=== PATIENT | male | born 1960 | race Caucasian/White ===

== ENCOUNTER 2016-07-03 19:30 | Emergency (ER) | payer BC ==
[~2016-07-03] VITALS: Ht 172.7 cm; Wt 87.1 kg
[~2016-07-03 19:30] MED LIST: ADULT LOW DOSE81 M1 PO; ADVAIR 500/501 DISK IH; AERONEB GO NEB1 EACH MC; AMLODIPINE BESY10 MG PO; BENICAR40 MG PO; CILOSTAZOL100 MG PO; COMBIVENT RESPIM4 GM IH; DELTASONE20 M1 PO; LEVAQUIN500 MG PO; LOVASTATIN10 MG PO; PROVENTIL2.5 MG/3 M IH; SINGULAIR10 MG PO; SPIRIVA1 INHALATI IH; TYLENOL EXTRA500 MG PO; VENTOLIN HFA18 GM IH
[2016-07-03] MEDS ORDERED: ZOFRAN ODT4 MG PO (21:41)
[2016-07-03 21:59] VITALS: BP 115/61
== END 2016-07-03 22:00 | disposition home or self-care (01) ==
LOC: EME 19:30
DX: S09.90XA Unspecified injury of head, initial encounter (principal); S06.0X0A Concussion without loss of consciousness, initial encounter; W01.198A Fall on same level from slipping, tripping and stumbling with subsequent striking against other object, initial encounter; J45.909 Unspecified asthma, uncomplicated; J44.9 Chronic obstructive pulmonary disease, unspecified; E78.5 Hyperlipidemia, unspecified; I10 Essential (primary) hypertension; Z86.73 Personal history of transient ischemic attack (TIA), and cerebral infarction without residual deficits; Z87.891 Personal history of nicotine dependence
CPT/HCPCS: 70450; 99281; 99283

== ENCOUNTER → 2016-11-10 | Outpatient (CLI) | payer BC ==
[~2016-11-10] MED LIST changes: +ZOFRAN ODT4 MG PO
== END | disposition home or self-care (01) ==
DX: R13.11 Dysphagia, oral phase (principal); R13.13 Dysphagia, pharyngeal phase
CPT/HCPCS: 92611 GN

== ENCOUNTER 2016-12-12 18:06 | Inpatient (IN) | payer BC ==
[~2016-12-12] VITALS: Ht 172.7 cm; Wt 75.8 kg
[2016-12-12 19:14] LABS: HEMATOCRIT 35.6 % (38.0-50.0); MCH 31.3 PG (29.0-34.0); MCHC 34.8 G/DL (30.0-36.0); MCV 89.9 FL (86-99); PLATELET COUNT 244 K/uL (156-360); RBC DIS.WIDTH-CV 11.5 % (11.8-14.6); RED BLOOD COUNT 3.96 M/uL (4.00-5.50); WHITE BLOOD COUNT 8.4 K/uL (4.1-10.2)
[2016-12-12 19:24] LABS: CHLORIDE 84 mEq/L (99-109); POTASSIUM 4.3 mEq/L (3.7-5.4); SODIUM 122 mEq/L (136-147)
[2016-12-12 19:26] LABS: GLUCOSE 86 mg/dL (70-99)
[2016-12-12 19:28] LABS: ANION GAP 9 MEQ/L (2-14)
[2016-12-12 19:30] LABS: GFR ESTIMATE (CALCULATED) > 59 mL/min/
[2016-12-12 19:31] LABS: UREA NITROGEN (BUN) 11 mg/dL (9-23)
[2016-12-12 20:58] LABS: SERUM ETHYL ALCOHOL 94 mg/dL
[2016-12-12 21:05] LABS: TROP-I INTERPRETATION NEGATIVE; TROPONIN-I 0.02 ng/mL (0.0-0.30)
[2016-12-12] MEDS ORDERED: PRAVACHOL10 MG PO (21:40)
[2016-12-13 00:07] VITALS: BP 136/88
[2016-12-13 03:38] VITALS: BP 149/86
[2016-12-13 05:59] LABS: HEMATOCRIT 38.9 % (38.0-50.0); MCH 31.3 PG (29.0-34.0); MCHC 34.2 G/DL (30.0-36.0); MCV 91.5 FL (86-99); MEAN PLAT.VOLUME 8.4 uM^3 (9.0-12.4); PLATELET COUNT 283 K/uL (156-360); RBC DIS.WIDTH-CV 11.9 % (11.8-14.6); RBC DIS.WIDTH-SD 39.9 % (39-53); RED BLOOD COUNT 4.25 M/uL (4.00-5.50); WHITE BLOOD COUNT 6.7 K/uL (4.1-10.2)
[2016-12-13 06:25] LABS: ANION GAP 8 MEQ/L (2-14); CHLORIDE 89 MEQ/L (99-109); GFR ESTIMATE (CALCULATED) > 59 mL/min/; POTASSIUM 4.7 MEQ/L (3.7-5.4); SAMPLE HEMOLYSIS CHECK 0; SAMPLE ICTERIC CHECK 0; SAMPLE LIPEMIA CHECK 0; SODIUM 127 MEQ/L (136-147); UREA NITROGEN (BUN) 12 mg/dL (9-23)
[2016-12-13 06:27] LABS: GLUCOSE 154 mg/dL (70-99)
[2016-12-13 08:31] VITALS: BP 129/86
[2016-12-13 13:04] VITALS: BP 143/80
[2016-12-13 16:39] VITALS: BP 166/93
[2016-12-13 23:40] VITALS: BP 147/85
[2016-12-14 04:24] VITALS: BP 141/80
[2016-12-14 05:44] LABS: EOSINOPHIL (%) 0 % (0-5); HEMATOCRIT 37.6 % (38.0-50.0); IMMATURE GRANULOCYTE (%) 0.7 % (0.0-0.7); IMMATURE GRANULOCYTE COUNT 0.1 K/uL; INSTRUMENT ABS NEUTROPHIL CT 11.7 K/uL; LYMPHOCYTE COUNT 0.2 K/uL (1.0-2.8); MCH 32.6 PG (29.0-34.0); MCHC 35.1 G/DL (30.0-36.0); MCV 92.8 FL (86-99); MEAN PLAT.VOLUME 8.6 uM^3 (9.0-12.4); MONOCYTE (%) 2.6 % (3-12); MONOCYTE COUNT 0.3 K/uL (0-0.8); NEUTROPHIL (%) 94.7 % (45-76); NEUTROPHIL COUNT 11.7 K/uL (1.8-6.4); PLATELET COUNT 281 K/uL (156-360); RBC DIS.WIDTH-CV 11.9 % (11.8-14.6); RBC DIS.WIDTH-SD 40.6 % (39-53); RED BLOOD COUNT 4.05 M/uL (4.00-5.50); WHITE BLOOD COUNT 12.3 K/uL (4.1-10.2)
[2016-12-14 06:23] LABS: ANION GAP 7 MEQ/L (2-14); CHLORIDE 90 MEQ/L (99-109); GFR ESTIMATE (CALCULATED) > 59 mL/min/; GLUCOSE 144 mg/dL (70-99); MAGNESIUM 1.8 mg/dl (1.3-2.7); POTASSIUM 4.1 MEQ/L (3.7-5.4); SAMPLE HEMOLYSIS CHECK 0; SAMPLE ICTERIC CHECK 0; SAMPLE LIPEMIA CHECK 0; SODIUM 127 MEQ/L (136-147); UREA NITROGEN (BUN) 14 mg/dL (9-23); URIC ACID 3.5 mg/dL (3.1-9.2)
[2016-12-14 07:52] VITALS: BP 154/93
[2016-12-14] MEDS ORDERED: AZITHROMYCIN500 M1 PO (07:56)
[2016-12-14] MEDS ORDERED: MEDROL DOSEPAK4 MG PO (07:56)
[2016-12-14 12:10] LABS: HPCA INDEX 0.15
[2016-12-14] MEDS ORDERED: SODIUM CHLORIDE1 G1 PO (15:23)
== END 2016-12-14 13:15 | disposition home or self-care (01) | DRG 191 ==
LOC: EME 18:06 → 3EAST 21:31 → EDOF 21:31 → ENRESERV 21:42 → 3EAST 23:49
PROVIDERS: Hospitalist; Internal Medicine Nephrology
DX: J44.1 Chronic obstructive pulmonary disease with (acute) exacerbation (principal); F10.239 Alcohol dependence with withdrawal, unspecified; E22.2 Syndrome of inappropriate secretion of antidiuretic hormone; J44.0 Chronic obstructive pulmonary disease with (acute) lower respiratory infection; J20.9 Acute bronchitis, unspecified; E11.9 Type 2 diabetes mellitus without complications; E78.5 Hyperlipidemia, unspecified; I10 Essential (primary) hypertension; I73.9 Peripheral vascular disease, unspecified; R09.02 Hypoxemia; R13.10 Dysphagia, unspecified; K64.9 Unspecified hemorrhoids; J98.4 Other disorders of lung; F10.229 Alcohol dependence with intoxication, unspecified; G56.00 Carpal tunnel syndrome, unspecified upper limb; Y90.4 Blood alcohol level of 80-99 mg/100 ml; R47.02 Dysphasia; Z82.49 Family history of ischemic heart disease and other diseases of the circulatory system; Z86.73 Personal history of transient ischemic attack (TIA), and cerebral infarction without residual deficits; Z88.0 Allergy status to penicillin; Z91.013 Allergy to seafood; Z91.81 History of falling; Z87.891 Personal history of nicotine dependence; Z23 Encounter for immunization
CPT/HCPCS: 70450; 70491; 71020; 76700; 80048; 81003; 82533 91; 82570; 83735; 83935; 84100; 84156; 84300; 84484; 84550; 85025; 85027; 86803; 87070; 87205; 90686; 93005; 94640; 94640 76; 94799; 99202; 99281; 99285; G0480; J1650; J1956; J2060; J2930; J7030; J7512

== ENCOUNTER 2017-05-08 19:19 | Observation (INO) | payer BC ==
[~2017-05-08] VITALS: Ht 170.2 cm; Wt 82.9 kg
[~2017-05-08 19:19] MED LIST changes: +AZITHROMYCIN500 M1 PO; +MEDROL DOSEPAK4 MG PO; +PRAVACHOL10 MG PO; +SODIUM CHLORIDE1 G1 PO
[2017-05-08 20:11] LABS: HEMATOCRIT 35.1 % (38.0-50.0); HEMOGLOBIN 12.4 G/DL (12.5-16.6); MCH 32.4 PG (29.0-34.0); MCHC 35.3 G/DL (30.0-36.0); MCV 91.6 FL (86-99); PLATELET COUNT 249 K/uL (156-360); RBC DIS.WIDTH-CV 11.5 % (11.8-14.6); RBC DIS.WIDTH-SD 38.8 % (39-53); RED BLOOD COUNT 3.83 M/uL (4.00-5.50); WHITE BLOOD COUNT 7.8 K/uL (4.1-10.2)
[2017-05-08 20:24] LABS: CHLORIDE 90 mEq/L (99-109); POTASSIUM 4.3 mEq/L (3.7-5.4); SODIUM 128 mEq/L (136-147)
[2017-05-08 20:26] LABS: GLUCOSE 106 mg/dL (70-99)
[2017-05-08 20:30] LABS: CREATININE 0.7 mg/dL (0.6-1.3); GFR ESTIMATE (CALCULATED) > 59 mL/min/ (58.99-99999)
[2017-05-08 20:31] LABS: UREA NITROGEN (BUN) 12 mg/dL (9-23)
[2017-05-09] MEDS ORDERED: OLMESARTAN MEDO40 MG PO
[2017-05-09 03:05] VITALS: BP 131/84
[2017-05-09 07:27] LABS: PTT 32.5 SEC (25-37)
[2017-05-09 07:30] VITALS: BP 122/67
[2017-05-09 11:40] VITALS: BP 133/72
[2017-05-09 20:10] VITALS: BP 136/79
[2017-05-10 00:02] VITALS: BP 100/60
[2017-05-10 00:23] VITALS: BP 128/68
[2017-05-10 04:15] VITALS: BP 133/90
[2017-05-10 07:14] LABS: HEMATOCRIT 33.7 % (38.0-50.0); HEMOGLOBIN 11.4 G/DL (12.5-16.6); MCH 31.7 PG (29.0-34.0); MCHC 33.8 G/DL (30.0-36.0); MCV 93.6 FL (86-99); PLATELET COUNT 272 K/uL (156-360); RBC DIS.WIDTH-CV 11.6 % (11.8-14.6); RBC DIS.WIDTH-SD 40.6 % (39-53); WHITE BLOOD COUNT 8.8 K/uL (4.1-10.2)
[2017-05-10 07:37] LABS: CHLORIDE 94 MEQ/L (99-109); CREATININE 0.8 MG/DL (0.6-1.3); GFR ESTIMATE (CALCULATED) > 59 mL/min/ (58.99-99999); GLUCOSE 101 mg/dL (70-99); POTASSIUM 4.4 MEQ/L (3.7-5.4); SODIUM 134 MEQ/L (136-147); UREA NITROGEN (BUN) 16 mg/dL (9-23)
[2017-05-10 08:40] VITALS: BP 150/84
[2017-05-10 11:39] VITALS: BP 129/73
[2017-05-10] MEDS ORDERED: CEFTIN500 MG PO (12:30)
[2017-05-10] MEDS ORDERED: PRAVASTATIN SOD40 MG PO (12:31)
== END 2017-05-10 14:23 | disposition home or self-care (01) ==
LOC: EME 19:19 → 3EAST 05-09 01:47 → EDOF 05-09 01:47 → 3EAST 05-09 01:47 → ENRESERV 05-09 01:50 → 4EAST 05-09 02:50 → ENRESERV 05-09 19:40 → 3EAST 05-09 20:26
PROVIDERS: Hospitalist; Internal Medicine; Physician Assistant
PROC: 0CJS8ZZ Inspection of Larynx, Via Natural or Artificial Opening Endoscopic (ICD-10-PCS; principal; 2017-05-09)
DX: J04.0 Acute laryngitis (principal); E87.1 Hypo-osmolality and hyponatremia; J18.9 Pneumonia, unspecified organism; Z86.73 Personal history of transient ischemic attack (TIA), and cerebral infarction without residual deficits; I10 Essential (primary) hypertension; E78.5 Hyperlipidemia, unspecified; E11.9 Type 2 diabetes mellitus without complications; Z87.891 Personal history of nicotine dependence; Z82.49 Family history of ischemic heart disease and other diseases of the circulatory system; Z83.3 Family history of diabetes mellitus; I70.219 Atherosclerosis of native arteries of extremities with intermittent claudication, unspecified extremity; I65.23 Occlusion and stenosis of bilateral carotid arteries; I25.10 Atherosclerotic heart disease of native coronary artery without angina pectoris; Z88.0 Allergy status to penicillin; Z91.013 Allergy to seafood
CPT/HCPCS: 70360; 70491; 71046; 80048; 82948; 85027; 85610; 85730; 92610 GN; 93005; 94640; 94640 76; 99202; 99281; 99285; G0378; J0456; J0696; J1100; J1644; J7030; J7040

== ENCOUNTER 2017-07-05 12:10 | Inpatient (IN) | payer OTHER ==
[~2017-07-05] VITALS: Ht 167.6 cm; Wt 83.0 kg
[~2017-07-05 12:10] MED LIST changes: +CEFTIN500 MG PO; +OLMESARTAN MEDO40 MG PO; +PRAVASTATIN SOD40 MG PO
[2017-07-05 12:44] LABS: BASOPHIL (%) 0.1 % (0-1); EOSINOPHIL (%) 0.3 % (0-5); HEMATOCRIT 35.9 % (38.0-50.0); HEMOGLOBIN 12.8 G/DL (12.5-16.6); IMMATURE GRANULOCYTE (%) 0.6 % (0.0-0.7); LYMPHOCYTE (%) 8.8 % (15-42); LYMPHOCYTE COUNT 0.8 K/uL (1.0-2.8); MCH 32.4 PG (29.0-34.0); MCHC 35.7 G/DL (30.0-36.0); MCV 90.9 FL (86-99); MONOCYTE (%) 7.4 % (3-12); MONOCYTE COUNT 0.7 K/uL (0-0.8); NEUTROPHIL (%) 82.8 % (45-76); NEUTROPHIL COUNT 7.8 K/uL (1.8-6.4); PLATELET COUNT 283 K/uL (156-360); RBC DIS.WIDTH-SD 40.3 % (39-53); RED BLOOD COUNT 3.95 M/uL (4.00-5.50); WHITE BLOOD COUNT 9.4 K/uL (4.1-10.2)
[2017-07-05 12:53] LABS: CHLORIDE 87 mEq/L (99-109); POTASSIUM 4.5 mEq/L (3.7-5.4); SODIUM 122 mEq/L (136-147)
[2017-07-05 12:55] LABS: GLUCOSE 124 mg/dL (70-99)
[2017-07-05 12:59] LABS: CREATININE 0.8 mg/dL (0.6-1.3); GFR ESTIMATE (CALCULATED) > 59 mL/min/ (58.99-99999); UREA NITROGEN (BUN) 19 mg/dL (9-23)
[2017-07-05] MEDS ORDERED: SPIRIVA1 INHALATI IH (13:40)
[2017-07-05] MEDS ORDERED: CLEOCIN300 MG PO (13:48)
[2017-07-05] MEDS ORDERED: PREDNISONE10 MG PO ×2 (13:49)
[2017-07-05 15:33] VITALS: BP 145/85
[2017-07-05 19:15] VITALS: BP 134/77
[2017-07-05 23:27] VITALS: BP 100/70
[2017-07-06 03:59] VITALS: BP 105/73
[2017-07-06 05:37] LABS: CHLORIDE 92 MEQ/L (99-109); CREATININE 0.7 MG/DL (0.6-1.3); GFR ESTIMATE (CALCULATED) > 59 mL/min/ (58.99-99999); GLUCOSE 181 mg/dL (70-99); POTASSIUM 4.3 MEQ/L (3.7-5.4); SODIUM 127 MEQ/L (136-147); UREA NITROGEN (BUN) 20 mg/dL (9-23)
[2017-07-06 08:40] VITALS: BP 188/99
[2017-07-06 11:36] VITALS: BP 138/76
[2017-07-06 15:52] VITALS: BP 129/79
[2017-07-06 23:24] VITALS: BP 129/72
[2017-07-07 04:05] VITALS: BP 141/75
[2017-07-07 05:57] LABS: CHLORIDE 95 MEQ/L (99-109); CREATININE 0.8 MG/DL (0.6-1.3); GFR ESTIMATE (CALCULATED) > 59 mL/min/ (58.99-99999); GLUCOSE 153 mg/dL (70-99); POTASSIUM 4.4 MEQ/L (3.7-5.4); SODIUM 130 MEQ/L (136-147); UREA NITROGEN (BUN) 16 mg/dL (9-23)
[2017-07-07 07:18] VITALS: BP 149/75
[2017-07-07 11:32] VITALS: BP 136/76
[2017-07-07 16:57] VITALS: BP 131/74
[2017-07-07 19:19] VITALS: BP 137/73
[2017-07-07 23:29] VITALS: BP 136/80
[2017-07-08 03:29] VITALS: BP 128/66
[2017-07-08 06:12] LABS: CHLORIDE 93 MEQ/L (99-109); CREATININE 0.8 MG/DL (0.6-1.3); GFR ESTIMATE (CALCULATED) > 59 mL/min/ (58.99-99999); GLUCOSE 121 mg/dL (70-99); POTASSIUM 4.6 MEQ/L (3.7-5.4); SODIUM 130 MEQ/L (136-147); UREA NITROGEN (BUN) 20 mg/dL (9-23)
[2017-07-08 07:58] VITALS: BP 156/87
[2017-07-08] MEDS ORDERED: FLUCONAZOLE100 MG PO (09:49)
[2017-07-08] MEDS ORDERED: AUGMENTIN875 MG PO (09:51)
[2017-07-08] MEDS ORDERED: ALPRAZOLAM0.25 M2 PO (09:53)
[2017-07-08] MEDS ORDERED: PROBIOTIC1 EAC4 PO (09:53)
[2017-07-08] MEDS ORDERED: PREDNISONE10 MG PO (09:53)
== END 2017-07-08 11:33 | disposition home or self-care (01) | DRG 191 ==
LOC: EME 12:10 → EDOF 14:04 → 4SOUTH 14:04 → EDOF 14:12 → ENRESERV 14:12 → 4SOUTH 15:25
PROVIDERS: Emergency Medicine; Hospitalist
DX: J44.0 Chronic obstructive pulmonary disease with (acute) lower respiratory infection (principal); J44.1 Chronic obstructive pulmonary disease with (acute) exacerbation; E78.5 Hyperlipidemia, unspecified; E87.1 Hypo-osmolality and hyponatremia; I73.9 Peripheral vascular disease, unspecified; I10 Essential (primary) hypertension; J20.9 Acute bronchitis, unspecified; E86.0 Dehydration; F41.9 Anxiety disorder, unspecified; J05.10 Acute epiglottitis without obstruction; K21.9 Gastro-esophageal reflux disease without esophagitis; J04.0 Acute laryngitis; Z79.899 Other long term (current) drug therapy; Z82.49 Family history of ischemic heart disease and other diseases of the circulatory system; Z87.891 Personal history of nicotine dependence; Z86.73 Personal history of transient ischemic attack (TIA), and cerebral infarction without residual deficits
CPT/HCPCS: 70360; 71045; 80048; 84295; 85025; 87040; 93005; 93880; 94640; 94640 76; 99202; 99281; 99285; J0456; J1650; J2920; J2930; J7030

== ENCOUNTER 2017-07-18 21:36 | Inpatient (IN) | payer OTHER ==
[~2017-07-18] VITALS: Ht 167.6 cm; Wt 85.6 kg
[~2017-07-18 21:36] MED LIST changes: +ALPRAZOLAM0.25 M2 PO; +AUGMENTIN875 MG PO; +CLEOCIN300 MG PO; +FLUCONAZOLE100 MG PO; +PREDNISONE10 MG PO; +PROBIOTIC1 EAC4 PO
[2017-07-18 21:54] LABS: BASOPHIL (%) 0.1 % (0-1); EOSINOPHIL (%) 0.5 % (0-5); EOSINOPHIL COUNT 0.1 K/uL (0-0.3); HEMATOCRIT 34.5 % (38.0-50.0); HEMOGLOBIN 12.4 G/DL (12.5-16.6); IMMATURE GRANULOCYTE (%) 0.4 % (0.0-0.7); LYMPHOCYTE (%) 9.1 % (15-42); LYMPHOCYTE COUNT 1.3 K/uL (1.0-2.8); MCH 32.9 PG (29.0-34.0); MCHC 35.9 G/DL (30.0-36.0); MCV 91.5 FL (86-99); MONOCYTE (%) 5.1 % (3-12); MONOCYTE COUNT 0.7 K/uL (0-0.8); NEUTROPHIL (%) 84.8 % (45-76); NEUTROPHIL COUNT 11.7 K/uL (1.8-6.4); PLATELET COUNT 232 K/uL (156-360); RBC DIS.WIDTH-CV 12.3 % (11.8-14.6); RBC DIS.WIDTH-SD 41.1 % (39-53); RED BLOOD COUNT 3.77 M/uL (4.00-5.50); WHITE BLOOD COUNT 13.8 K/uL (4.1-10.2)
[2017-07-18 22:04] LABS: ALBUMIN 3.9 g/dL (3.2-4.8)
[2017-07-18 22:05] LABS: CHLORIDE 89 mEq/L (99-109); POTASSIUM 4.4 mEq/L (3.7-5.4); SODIUM 125 mEq/L (136-147)
[2017-07-18 22:07] LABS: GLUCOSE 110 mg/dL (70-99); TOTAL PROTEIN 6.2 g/dL (6.4-8.3)
[2017-07-18 22:09] LABS: TOTAL BILIRUBIN 0.6 mg/dL (0.0-1.0)
[2017-07-18 22:10] LABS: ALKALINE PHOSPHATASE 77 IU/L (3-129)
[2017-07-18 22:11] LABS: CREATININE 0.8 mg/dL (0.6-1.3); GFR ESTIMATE (CALCULATED) > 59 mL/min/ (58.99-99999)
[2017-07-18 22:12] LABS: AST (GOT) 21 IU/L (2-34); UREA NITROGEN (BUN) 14 mg/dL (9-23)
[2017-07-18 22:13] LABS: ALT (GPT) 25 IU/L (3-49)
[2017-07-18 22:17] LABS: TROP-I INTERPRETATION NEGATIVE; TROPONIN-I 0.01 ng/mL (0.0-0.30)
[2017-07-18] MEDS ORDERED: PRAVACHOL40 MG PO (23:08)
[2017-07-18] MEDS ORDERED: PREDNISONE20 MG PO (23:12)
[2017-07-18] MEDS ORDERED: OCEAN NASAL 0.645 ML BOTH NARES (23:13)
[2017-07-19 07:25] LABS: C-REACTIVE PROTEIN < 1.0 MG/L (0-10)
[2017-07-19 07:43] LABS: FOLIC ACID (FOLATE) 9.2 NG/ML (5.0-22.0)
[2017-07-19] MEDS ORDERED: BENICAR40 MG PO (08:16)
[2017-07-19 08:37] VITALS: BP 174/95
[2017-07-19 10:56] LABS: HEMATOCRIT 37.2 % (38.0-50.0); HEMOGLOBIN 12.5 G/DL (12.5-16.6); MCH 31.7 PG (29.0-34.0); MCHC 33.6 G/DL (30.0-36.0); MCV 94.4 FL (86-99); PLATELET COUNT 236 K/uL (156-360); RBC DIS.WIDTH-CV 12.5 % (11.8-14.6); RBC DIS.WIDTH-SD 43.7 % (39-53); RED BLOOD COUNT 3.94 M/uL (4.00-5.50); WHITE BLOOD COUNT 11.1 K/uL (4.1-10.2)
[2017-07-19 11:02] LABS: CHLORIDE 90 MEQ/L (99-109); CREATININE 0.8 MG/DL (0.6-1.3); GFR ESTIMATE (CALCULATED) > 59 mL/min/ (58.99-99999); GLUCOSE 113 mg/dL (70-99); POTASSIUM 4.7 MEQ/L (3.7-5.4); SODIUM 128 MEQ/L (136-147); UREA NITROGEN (BUN) 16 mg/dL (9-23)
[2017-07-19 11:10] VITALS: BP 161/87
[2017-07-19 13:00] LABS: APPEARANCE CLEAR ((CLEAR)); BILIRUBIN NEGATIVE; BLOOD NEGATIVE; COLOR STRAW ((YELLOW)); GLUCOSE (STRIP) 150; KETONES NEGATIVE; LEUKOCYTES NEGATIVE; NITRITE NEGATIVE; PROTEIN (STRIP) NEGATIVE; SPECIFIC GRAVITY 1.009 (1.000-1.030); UCUL ADDED? NO; UROBILINOGEN 0.2 MG/DL (0.2-1.0)
[2017-07-19 16:21] VITALS: BP 144/78
[2017-07-19 19:58] VITALS: BP 154/93
[2017-07-19 23:30] VITALS: BP 130/68
[2017-07-20 04:08] VITALS: BP 159/97
[2017-07-20 06:01] LABS: HEMATOCRIT 35.5 % (38.0-50.0); MCH 31.3 PG (29.0-34.0); MCHC 33.8 G/DL (30.0-36.0); MCV 92.4 FL (86-99); PLATELET COUNT 232 K/uL (156-360); RBC DIS.WIDTH-CV 12.4 % (11.8-14.6); RBC DIS.WIDTH-SD 42.2 % (39-53); RED BLOOD COUNT 3.84 M/uL (4.00-5.50); WHITE BLOOD COUNT 10.6 K/uL (4.1-10.2)
[2017-07-20 06:14] LABS: CHLORIDE 89 MEQ/L (99-109); CREATININE 0.7 MG/DL (0.6-1.3); GFR ESTIMATE (CALCULATED) > 59 mL/min/ (58.99-99999); GLUCOSE 153 mg/dL (70-99); POTASSIUM 4.1 MEQ/L (3.7-5.4); SODIUM 128 MEQ/L (136-147); UREA NITROGEN (BUN) 14 mg/dL (9-23)
[2017-07-20 08:01] VITALS: BP 149/75
[2017-07-20 12:08] VITALS: BP 140/94
[2017-07-20 15:37] VITALS: BP 143/77
[2017-07-20 23:45] VITALS: BP 145/83
[2017-07-21 05:18] VITALS: BP 139/83
[2017-07-21 05:46] LABS: HEMATOCRIT 33.1 % (38.0-50.0); HEMOGLOBIN 11.5 G/DL (12.5-16.6); MCH 31.6 PG (29.0-34.0); MCHC 34.7 G/DL (30.0-36.0); MCV 90.9 FL (86-99); PLATELET COUNT 194 K/uL (156-360); RBC DIS.WIDTH-CV 12.2 % (11.8-14.6); RED BLOOD COUNT 3.64 M/uL (4.00-5.50); WHITE BLOOD COUNT 9.2 K/uL (4.1-10.2)
[2017-07-21 06:26] LABS: CHLORIDE 91 MEQ/L (99-109); CREATININE 0.9 MG/DL (0.6-1.3); GFR ESTIMATE (CALCULATED) > 59 mL/min/ (58.99-99999); GLUCOSE 140 mg/dL (70-99); MAGNESIUM 1.9 mg/dl (1.3-2.7); POTASSIUM 3.8 MEQ/L (3.7-5.4); SODIUM 130 MEQ/L (136-147); UREA NITROGEN (BUN) 21 mg/dL (9-23)
[2017-07-21 07:42] VITALS: BP 168/86
[2017-07-21] MEDS ORDERED: SODIUM CHLORIDE1 G1 PO (10:54)
[2017-07-21] MEDS ORDERED: FUROSEMIDE20 MG PO (10:54)
[2017-07-21] MEDS ORDERED: PREDNISONE20 MG PO (10:55)
[2017-07-24 21:56] LABS: Neutrophil Cytoplasmic Aby Negative (Negative)
== END 2017-07-21 12:56 | disposition home or self-care (01) | DRG 644 ==
LOC: EME 21:36 → 3EAST 07-19 04:44 → EDOF 07-19 04:44 → ENRESERV 07-19 04:47 → 3EAST 07-19 07:56
PROVIDERS: Emergency Medicine; Hospitalist; Internal Medicine Infectious Disease; Internal Medicine Nephrology; Physician Assistant
DX: E27.40 Unspecified adrenocortical insufficiency (principal); E22.2 Syndrome of inappropriate secretion of antidiuretic hormone; J05.10 Acute epiglottitis without obstruction; J37.0 Chronic laryngitis; J02.9 Acute pharyngitis, unspecified; R13.10 Dysphagia, unspecified; J44.1 Chronic obstructive pulmonary disease with (acute) exacerbation; E78.5 Hyperlipidemia, unspecified; I10 Essential (primary) hypertension; F32.9 Major depressive disorder, single episode, unspecified; E11.51 Type 2 diabetes mellitus with diabetic peripheral angiopathy without gangrene; F10.10 Alcohol abuse, uncomplicated; R59.0 Localized enlarged lymph nodes; E66.01 Morbid (severe) obesity due to excess calories; Z68.30 Body mass index [BMI] 30.0-30.9, adult; Z86.73 Personal history of transient ischemic attack (TIA), and cerebral infarction without residual deficits; Z87.891 Personal history of nicotine dependence; Z88.1 Allergy status to other antibiotic agents; Z91.013 Allergy to seafood; Z79.52 Long term (current) use of systemic steroids
CPT/HCPCS: 70360; 70491; 70540; 71046; 76700; 80048; 80048 91; 80053; 81003; 82164 90; 82607; 82746; 83003 90; 83735; 83880; 83935; 84300; 84484; 84550; 85025; 85027; 85651; 86021 90; 86060 90; 86140; 87651 90; 93005; 93306; 94640; 94640 76; 94799; 99202; 99281; 99284; J0295; J0696; J1100; J1650; J2060; J2930; J3370; J7030; J7050

== ENCOUNTER 2017-08-03 21:32 | Observation (INO) | payer OTHER ==
[~2017-08-03] VITALS: Ht 167.6 cm; Wt 80.9 kg
[~2017-08-03 21:32] MED LIST changes: +FUROSEMIDE20 MG PO; +OCEAN NASAL 0.645 ML BOTH NARES; +PRAVACHOL40 MG PO; +PREDNISONE20 MG PO
[2017-08-03 22:02] LABS: HEMATOCRIT 37.9 % (38.0-50.0); HEMOGLOBIN 13.2 G/DL (12.5-16.6); MCH 32.6 PG (29.0-34.0); MCHC 34.8 G/DL (30.0-36.0); MCV 93.6 FL (86-99); PLATELET COUNT 251 K/uL (156-360); RBC DIS.WIDTH-CV 13.1 % (11.8-14.6); RBC DIS.WIDTH-SD 44.9 % (39-53); RED BLOOD COUNT 4.05 M/uL (4.00-5.50); WHITE BLOOD COUNT 8.2 K/uL (4.1-10.2)
[2017-08-03 22:14] LABS: CHLORIDE 93 mEq/L (99-109); POTASSIUM 3.7 mEq/L (3.7-5.4); SODIUM 136 mEq/L (136-147)
[2017-08-03 22:16] LABS: GLUCOSE 129 mg/dL (70-99)
[2017-08-03 22:20] LABS: CREATININE 0.9 mg/dL (0.6-1.3); GFR ESTIMATE (CALCULATED) > 59 mL/min/ (58.99-99999)
[2017-08-03 22:21] LABS: UREA NITROGEN (BUN) 23 mg/dL (9-23)
[2017-08-03 23:32] LABS: ALBUMIN 4.1 g/dL (3.2-4.8)
[2017-08-03 23:35] LABS: TOTAL PROTEIN 6.6 g/dL (6.4-8.3)
[2017-08-03 23:37] LABS: TOTAL BILIRUBIN 0.5 mg/dL (0.0-1.0)
[2017-08-03 23:38] LABS: ALKALINE PHOSPHATASE 77 IU/L (3-129)
[2017-08-03 23:40] LABS: AST (GOT) 16 IU/L (2-34)
[2017-08-03 23:41] LABS: ALT (GPT) 27 IU/L (3-49); DIRECT BILIRUBIN 0.2 mg/dL (0.0-0.3); TROP-I INTERPRETATION NEGATIVE; TROPONIN-I 0.01 ng/mL (0.0-0.30)
[2017-08-04] MEDS ORDERED: ALBUTEROL2.5 MG/3 M IH (00:22)
[2017-08-04] MEDS ORDERED: LASIX20 MG PO (00:23)
[2017-08-04] MEDS ORDERED: ZANTAC150 MG PO (00:25)
[2017-08-04 04:07] VITALS: BP 141/93
[2017-08-04 07:37] VITALS: BP 150/84
[2017-08-04 12:47] VITALS: BP 133/94
[2017-08-04 16:31] VITALS: BP 165/88
[2017-08-04] MEDS ORDERED: PREDNISONE20 MG PO (17:17)
== END 2017-08-04 19:54 | disposition home or self-care (01) ==
LOC: EME 21:32 → 4SOUTH 08-04 02:30 → EDOF 08-04 02:30 → ENRESERV 08-04 02:35 → 4SOUTH 08-04 03:51
PROVIDERS: Hospitalist
DX: R06.02 Shortness of breath (principal); R13.10 Dysphagia, unspecified; D86.9 Sarcoidosis, unspecified; J44.9 Chronic obstructive pulmonary disease, unspecified; I10 Essential (primary) hypertension; E87.1 Hypo-osmolality and hyponatremia; Z86.73 Personal history of transient ischemic attack (TIA), and cerebral infarction without residual deficits; I73.9 Peripheral vascular disease, unspecified; Z87.891 Personal history of nicotine dependence; Z82.49 Family history of ischemic heart disease and other diseases of the circulatory system; Z88.1 Allergy status to other antibiotic agents; Z91.013 Allergy to seafood
CPT/HCPCS: 71046; 80048; 80076; 82948; 83880; 84484; 85027; 93005; 94640; 99202; 99281; 99285; G0378; J1644; J2920; J2930; J7030; S0028

== ENCOUNTER 2017-08-10 22:51 | Inpatient (IN) | payer OTHER ==
[~2017-08-10] VITALS: Ht 167.6 cm; Wt 58.8 kg
[~2017-08-10 22:51] MED LIST changes: +ALBUTEROL2.5 MG/3 M IH; +LASIX20 MG PO; +ZANTAC150 MG PO
[2017-08-10 23:30] LABS: HEMATOCRIT 33.1 % (38.0-50.0); HEMOGLOBIN 11.7 G/DL (12.5-16.6); MCH 32.9 PG (29.0-34.0); MCHC 35.3 G/DL (30.0-36.0); PLATELET COUNT 198 K/uL (156-360); RBC DIS.WIDTH-CV 12.9 % (11.8-14.6); RBC DIS.WIDTH-SD 44.6 % (39-53); RED BLOOD COUNT 3.56 M/uL (4.00-5.50); WHITE BLOOD COUNT 8.2 K/uL (4.1-10.2)
[2017-08-10 23:39] LABS: CHLORIDE 90 mEq/L (99-109); SODIUM 129 mEq/L (136-147)
[2017-08-10 23:41] LABS: GLUCOSE 93 mg/dL (70-99)
[2017-08-10 23:44] LABS: SERUM ETHYL ALCOHOL 207 mg/dL
[2017-08-10 23:45] LABS: CREATININE 1.3 mg/dL (0.6-1.3); GFR ESTIMATE (CALCULATED) > 59 mL/min/ (58.99-99999)
[2017-08-10 23:46] LABS: UREA NITROGEN (BUN) 24 mg/dL (9-23)
[2017-08-11 04:09] LABS: MAGNESIUM 2.1 mg/dL (1.3-2.7)
[2017-08-11] MEDS ORDERED: PREDNISONE20 MG PO (04:26)
[2017-08-11 04:50] VITALS: BP 87/50
[2017-08-11 08:10] VITALS: BP 130/74
[2017-08-11] MEDS ORDERED: XANAX0.25 MG PO (11:21)
[2017-08-11 16:49] VITALS: BP 138/93
[2017-08-11 20:19] VITALS: BP 176/93
[2017-08-11 23:38] VITALS: BP 135/89
[2017-08-12 06:20] LABS: HEMATOCRIT 30.4 % (38.0-50.0); HEMOGLOBIN 10.4 G/DL (12.5-16.6); MCH 32.3 PG (29.0-34.0); MCHC 34.2 G/DL (30.0-36.0); MCV 94.4 FL (86-99); PLATELET COUNT 188 K/uL (156-360); RBC DIS.WIDTH-CV 13.2 % (11.8-14.6); RBC DIS.WIDTH-SD 46.1 % (39-53); RED BLOOD COUNT 3.22 M/uL (4.00-5.50); WHITE BLOOD COUNT 7.1 K/uL (4.1-10.2)
[2017-08-12 06:51] LABS: CHLORIDE 92 MEQ/L (99-109); GLUCOSE 83 mg/dL (70-99); POTASSIUM 3.9 MEQ/L (3.7-5.4); SODIUM 128 MEQ/L (136-147); UREA NITROGEN (BUN) 14 mg/dL (9-23)
[2017-08-12 06:56] LABS: CREATININE 0.8 MG/DL (0.6-1.3); GFR ESTIMATE (CALCULATED) > 59 mL/min/ (58.99-99999)
[2017-08-12 07:47] VITALS: BP 156/85
[2017-08-12 23:23] VITALS: BP 171/80
[2017-08-13] MEDS ORDERED: DOCUSATE SODIU100 MG PO (07:57)
[2017-08-13] MEDS ORDERED: FOLIC ACID1 MG PO (07:57)
[2017-08-13] MEDS ORDERED: Thiamine,Vitamin B1 PO (07:57)
[2017-08-13] MEDS ORDERED: THERAGRAN1 TABLET PO (07:57)
[2017-08-13] MEDS ORDERED: OXYCODONE-APAP1 EACH PO (07:57)
[2017-08-13 09:06] VITALS: BP 171/81
[2017-08-13 10:01] VITALS: BP 167/78
== END 2017-08-13 11:59 | disposition home or self-care (01) | DRG 563 ==
LOC: EME → EDBD 22:51 → EDOF 08-11 03:42 → ENRESERV 08-11 03:43 → 3EAST 08-11 04:35
PROVIDERS: Emergency Medicine; Physician Assistant Medical
DX: S42.252A Displaced fracture of greater tuberosity of left humerus, initial encounter for closed fracture (principal); S42.262A Displaced fracture of lesser tuberosity of left humerus, initial encounter for closed fracture; S80.02XA Contusion of left knee, initial encounter; W01.0XXA Fall on same level from slipping, tripping and stumbling without subsequent striking against object, initial encounter; Y92.007 Garden or yard of unspecified non-institutional (private) residence as the place of occurrence of the external cause; N17.9 Acute kidney failure, unspecified; F10.229 Alcohol dependence with intoxication, unspecified; Y90.7 Blood alcohol level of 200-239 mg/100 ml; E87.2 Acidosis; R09.02 Hypoxemia; D86.89 Sarcoidosis of other sites; E22.2 Syndrome of inappropriate secretion of antidiuretic hormone; F32.9 Major depressive disorder, single episode, unspecified; J44.9 Chronic obstructive pulmonary disease, unspecified; I10 Essential (primary) hypertension; E78.5 Hyperlipidemia, unspecified; E11.9 Type 2 diabetes mellitus without complications; E66.9 Obesity, unspecified; F41.9 Anxiety disorder, unspecified; Z68.31 Body mass index [BMI] 31.0-31.9, adult; Z86.73 Personal history of transient ischemic attack (TIA), and cerebral infarction without residual deficits; Z87.891 Personal history of nicotine dependence
CPT/HCPCS: 70450; 71250; 73030; 73200; 73564; 80048; 83735; 85027; 94640; 94640 76; 99202; 99281; 99285; G0480; J1650; J1885; J3010; J3411; J7030; J7512

== ENCOUNTER 2017-10-09 10:57 | Emergency (ER) | payer OTHER ==
[~2017-10-09] VITALS: Ht 167.6 cm; Wt 89.6 kg
[~2017-10-09 10:57] MED LIST changes: +DOCUSATE SODIU100 MG PO; +FOLIC ACID1 MG PO; +OXYCODONE-APAP1 EACH PO; +THERAGRAN1 TABLET PO; +Thiamine,Vitamin B1 PO; +XANAX0.25 MG PO
[2017-10-09 11:29] LABS: HEMATOCRIT 38.9 % (38.0-50.0); HEMOGLOBIN 13.2 G/DL (12.5-16.6); MCH 33.2 PG (29.0-34.0); MCHC 33.9 G/DL (30.0-36.0); MCV 97.7 FL (86-99); PLATELET COUNT 275 K/uL (156-360); RBC DIS.WIDTH-CV 13.3 % (11.8-14.6); RBC DIS.WIDTH-SD 47.8 % (39-53); RED BLOOD COUNT 3.98 M/uL (4.00-5.50); WHITE BLOOD COUNT 11.1 K/uL (4.1-10.2)
[2017-10-09 11:37] LABS: CHLORIDE 96 mEq/L (99-109); SODIUM 138 mEq/L (136-147)
[2017-10-09 11:39] LABS: GLUCOSE 112 mg/dL (70-99)
[2017-10-09 11:43] LABS: CREATININE 0.9 mg/dL (0.6-1.3); GFR ESTIMATE (CALCULATED) > 59 mL/min/ (58.99-99999)
[2017-10-09 11:44] LABS: UREA NITROGEN (BUN) 15 mg/dL (9-23)
[2017-10-09] MEDS ORDERED: PREDNISONE50 MG PO (13:24)
[2017-10-09] MEDS ORDERED: ZITHROMAX Z-PA250 MG PO (13:24)
[2017-10-09 15:24] VITALS: BP 129/89
== END 2017-10-09 15:26 | disposition home or self-care (01) ==
LOC: EME 10:57
DX: J44.1 Chronic obstructive pulmonary disease with (acute) exacerbation (principal); J20.9 Acute bronchitis, unspecified; J44.0 Chronic obstructive pulmonary disease with (acute) lower respiratory infection; F32.9 Major depressive disorder, single episode, unspecified; I10 Essential (primary) hypertension; Z86.73 Personal history of transient ischemic attack (TIA), and cerebral infarction without residual deficits; K21.9 Gastro-esophageal reflux disease without esophagitis; Z88.0 Allergy status to penicillin; Z87.891 Personal history of nicotine dependence
CPT/HCPCS: 71046; 80048; 85027; 93005; 94640; 99281; 99285; J2930; J7030